=== PATIENT | female | born 1975 | race Two or more races ===

== ENCOUNTER 2019-12-02 21:01 | Emergency (ER) | payer MEDICAID ==
[~2019-12-02] VITALS: Ht 149.9 cm; Wt 55.0 kg
[2019-12-03 01:31] LABS: BASOPHILS % 0.4 % (0.0-2.0); EOSINOPHILS % 1.1 % (0.0-5.0); HEMATOCRIT. 35.1 % (36.0-48.0); HEMOGLOBIN. 12.1 g/dL (12.0-16.0); LYMPHOCYTES % 40.4 % (20.0-50.0); MEAN CORPUSCULAR HEMOGLOBIN 29.9 pg (28.0-32.0); MEAN CORPUSCULAR VOLUME 86.6 fL (81.0-99.0); MEAN PLATELET VOLUME 9.4 fl (7.4-10.4); MONOCYTES % 7.8 % (2.0-8.0); NEUTROPHILS % 50.3 % (40.0-76.0); PLATELET 249 x1000/uL (130-400); RED BLOOD CELL COUNT 4.06 mill/uL (4.2-5.4); RED CELL DISTRIBUTION WIDTH 14.1 % (11.6-14.6)
[2019-12-03 01:37] LABS: CHLORIDE 104 mEq/L (98-107)
[2019-12-03 04:45] VITALS: BP 138/78
== END 2019-12-03 06:34 | disposition home or self-care (01) ==
LOC: ER 21:01
DX: I10 Essential (primary) hypertension (principal); R51 Headache
CPT/HCPCS: 36415; 80053; 81025; 85025; 93005; 99285